=== PATIENT | male | born 1985 | race Caucasian/White ===

== ENCOUNTER 2020-08-29 15:11 | Emergency (ER) | payer OTHER ==
[~2020-08-29] VITALS: Ht 182.8 cm; Wt 83.9 kg
== END 2020-08-29 19:17 | disposition home or self-care (01) ==
LOC: ED 15:11
DX: S46.912A Strain of unspecified muscle, fascia and tendon at shoulder and upper arm level, left arm, initial encounter (principal); S50.812A Abrasion of left forearm, initial encounter; Z88.6 Allergy status to analgesic agent; V48.6XXA Car passenger injured in noncollision transport accident in traffic accident, initial encounter; Y93.89 Activity, other specified; Y92.488 Other paved roadways as the place of occurrence of the external cause; Y99.8 Other external cause status